=== PATIENT | female | born 1990 | race Caucasian/White ===

== ENCOUNTER 2021-12-14 01:15 | Inpatient (IN) | payer OTHER, SELFPAY ==
[2021-12-14] VITALS (21 sets, daily range): BP systolic 101–150; BP diastolic 57–81; PULSE 75–100; RESP 16–18; TEMP 36.3–37.7; O2SAT 98–99; BMI 43.9
[2021-12-14] MEDS: 0.9% Saline Lock 10 ML Syringe IV ×2 (01:35→05:50)
[2021-12-14 01:57] LABS: Absolute Lymphocyte Count 1.97 X10^3/uL (0.83-4.51); Absolute Neutrophil Count 5.7 X10^3/uL (2.0-7.7); Basophil# 0.02 X10^3/uL; Basophil% 0.2 % (0-1); Eosinophils% 1.2 % (0-5); Hematocrit 33.2 % (37-47); Hemoglobin 10.6 g/dL (12.0-15.0); Lymphocyte # 1.97 X10^3/ul (0.83-4.51); Lymphocyte % 23.7 % (19-41); Mean Corp Hgb Conc 31.9 g/dL (32-36); Mean Corpuscular Hgb 30.9 pg (27.0-32.0); Mean Corpuscular Volume 96.8 fL (81-99); Mean Platelet Vol. 10.1 fl (6.2-12.0); NRBC Flagged by Analyzer 0 % (0-5); Neutrophil # 5.69 X10^3/uL (2.7-7.7); Neutrophil % 68.4 % (47-70); Platelet Count 210 K/mm3 (150-450); RBC Distribution Width CV 14.7 % (11.6-14.6); Red Blood Count 3.43 M/mm3 (4.2-5.4); White Blood Count 8.3 K/mm3 (4.4-11.0)
[2021-12-14] MEDS: Lactated Ringers 1,000 ML 50 ML IV (02:38)
[2021-12-14] MEDS: Oxytocin 30 units/NS 500 ml 30 UNITS/500 ML IV.SOLN IV (02:45)
--- NOTE | 2021-12-14 03:14 | HP.PCM.OB_ITS ---
HPI - General General Date of Admission: 12/14/21 Date of Service: 12/14/21 Chief Complaint: heart rate decelerations at [facility], so brought in by Ld Teacher. (Rhianna) HPI Narrative AGUSTIN CEDILLO, is a 31 F who presents as above . She is a EGA 41+3 weeks and yesterday her midwive attempted to induce labor using [place] oil x 1, herbs and breast stimulation by pump. The herbs are piedad, black & blue cohosh and 4th t ype (?). There has been no bleeding, LOF, and movements have persisted. Maternal Data Information Final CARLOS: 01/05/22 Gestational age: 41.4 PFSH COUNT INCLUDES THE [facility] Medical History (Updated 12/14/21 @ 03:[address] Kaitlynn Haskins MD) Family history of hearing loss at age younger than 7 years Headache hemorrhage Vacuum-assisted vaginal delivery Allergy/AdvReac Type Severity Reaction Status Date / Time No Known Allergies Allergy Verified 12/14/21 00:54 other (family history of twins and Down's syndrome - maternal) no surgical history Social History Smoking Status: Never smoker History 7 Elective abortions 0 Hx Para 6 Spontaneous abortions 0 Hx # Term Pregnancies 6 Ectopic pregnancies 0 Hx # Pregnancies 0 Multiple births 0 # of living children 6 Addt'l History: PNC with resident care manager rn, was planning center delivery. Records show 25lb weight gain in an obese female. Documents show EFW 38wks- 3300gm, ceph pres. NST FHR Rate Baby A Baseline: 135 Variability:: Moderate Accelerations:: 15 x 15 Decelerations:: None NST Reactive:: Appropriate for gestational age FHR Category:: Category I Uterine Activity:: contractions q 2- 5 minutes Vital Signs Vital Signs Vital Signs: 12/14/21 01:00 12/14/21 01:00 12/14/21 01:01 Temperature Temperature Source Pulse Rate 91 Blood Pressure 101/59 L BP Systolic 101 BP Diastolic 59 Pulse Ox 99 12/14/21 01:01 12/14/21 00:57 12/14/21 00:57 Temperature 98.4 F Temperature Source Temporal Pulse Rate 91 Blood Pressure BP Systolic BP Diastolic Pulse Ox 12/14/21 02:21 12/14/21 02:22 12/14/21 02:22 Temperature Temperature Source Temporal Pulse Rate 85 Blood Pressure BP Systolic BP Diastolic Pulse Ox 98 12/14/21 02:21 10 02:22 12/14/21 02:22 Temperature 97.8 F Temperature Source Pulse Rate 90 Blood Pressure 108/60 BP Systolic 108 BP Diastolic 60 Pulse Ox Weight Weight: 240 lb 6.4 oz Body Mass Index (BMI) 43.9 Physical Exam Const alert, oriented x3 and no apparent distress General Appearance: cooperative Exam Limitations: no limitations Nutritional Appearance: obese HEENT normocephalic Eyes PERRL Lymph Lymphatic: no lymphadenopathy noted Resp normal respiratory effort and clear to auscultation bilaterally Cardio regular rate and regular rhythm GI soft to palpation and non-tender GI Narrative: Gravid abdomen. no CVA tenderness Narrative: per RN 3-4cm//-2 station Uterus Palpation: other OB average 7-7.5lb fetus Extremity no calf tenderness and no pedal edema Extremity Narrative: some scabs- erythematous. Skin General Skin Exam: no breakdown Neuro oriented x3 Psych mental status grossly normal and cooperative Labs Labs Labs: Blood Type Pending Antibody Screen Pending Hct 33.2 % (37-47) L Hgb 10.6 g/dL (12.0-15.0) L Syphilis Total Ab Pending Rubella IgG Antibody Pending Hep Bs Antigen Pending HIV 1&2 Antibody Pending Group B Strep DNA Pending Assessment & Plan (1) 41 weeks gestation of : (2) Mild anemia: (3) Grand multipara in labor: (4) Insufficient care: (5) Obesity (BMI 35.0-39.9 without comorbidity): PLAN: Plan Labor monitoring with augmentation as needed, anticipate
--- NOTE | 2021-12-14 03:33 | HP.PCM.OB_ITS ---
HPI - General General Date of Admission: 12/14/21 Chief Complaint: heart rate decelerations at [facility], so brought in by Three Dimensional Art Instructor. (Rhianna) HPI Narrative AGUSTIN CEDILLO, is a 31 F who presents [facility] Medical History (Updated 12/14/21 @ 03:[address] Kaitlynn Haskins MD) Family history of hearing loss at age younger than 7 years Headache hemorrhage Vacuum-assisted vaginal delivery Allergy/AdvReac Type Severity Reaction Status Date / Time No Known Allergies Allergy Verified 12/14/21 00:54 Family History other Surgical History no surgical history Social History Smoking Status: Never smoker History 7 Elective abortions 0 Hx Para 6 Spontaneous abortions 0 Hx # Term Pregnancies 6 Ectopic pregnancies 0 Hx # Pregnancies 0 Multiple births 0 # of living children 6 Vital Signs Vital Signs Vital Signs: 12/14/21 01:00 12/14/21 01:00 12/14/21 01:01 Temperature Temperature Source Pulse Rate 91 Blood Pressure 101/59 L BP Systolic 101 BP Diastolic 59 Pulse Ox 99 12/14/21 01:01 12/14/21 00:57 12/14/21 00:57 Temperature 98.4 F Temperature Source Temporal Pulse Rate 91 Blood Pressure BP Systolic BP Diastolic Pulse Ox 12/14/21 02:21 12/14/21 02:22 12/14/21 02:22 Temperature Temperature Source Temporal Pulse Rate 85 Blood Pressure BP Systolic BP Diastolic Pulse Ox 98 12/14/21 02:21 12/14/21 02:22 12/14/21 02:22 Temperature 97.8 F Temperature Source Pulse Rate 90 Blood Pressure 108/60 BP Systolic 108 BP Diastolic 60 Pulse Ox 12/14/21 03:17 12/14/21 03:17 12/14/21 03:17 Temperature 99.4 F H Temperature Source Temporal Pulse Rate Blood Pressure 103/57 L BP Systolic 103 BP Diastolic 57 Pulse Ox 12/14/21 03:18 12/14/21 03:18 Temperature Temperature Source Pulse Rate 79 Blood Pressure BP Systolic BP Diastolic Pulse Ox 98 Weight Weight: 240 lb 6.4 oz Body Mass Index (BMI) 43.9 Labs Labs Labs: Blood Type Pending Antibody Screen Pending Hct 33.2 % (37-47) L Hgb 10.6 g/dL (12.0-15.0) L Syphilis Total Ab Pending Rubella IgG Antibody Pending Hep Bs Antigen Pending HIV 1&2 Antibody Pending Group B Strep DNA Pending
--- NOTE | 2021-12-14 03:35 | PCM.PN.BLA ---
Progress Note Patient currently very comfortable when seen about 0300. Pitocin running at 1 miu/minute with ctxs q 1.5 - 3 minutes and patient tolerating them well. No pelvic exam done. 0415 - patient states ctxs q 2-3' are 6/ ie a little stronger than when she came in - 06/20. VE done : 4-5cm/stretchy/70%/-3 and during exam SROM happened for moderate meconium stained fluid. Slowly withdrawn examining hand. FHR 140's with moderate varibility.
[2021-12-14 04:07] LABS: HIV - WCH Preliminary Reactive (Nonreactive); Hepatitis B Surface Antigen Non-Reactive (Nonreactive); Hepatitis C Antibody Non-Reactive (Nonreactive)
[2021-12-14 05:06] LABS: Mucous, Urine 0 SEEN /hpf (<or=2+)
[2021-12-14 05:08] LABS: Color, Urine Yellow (Yellow); Glucose, Dipstick Normal (Normal); Ketone-Dipstick Negative (Negative); Leukocyte Esterase-Dipstick 500 /ul (Negative); Nitrite-Dipstick Negative (Negative); Occult Blood-Urine 250 /ul (Negative); Protein-Dipstick 30 mg/dl (Negative); Urine Bilirubin Dipstick Negative (Negative); Urine Clarity Sl. Cloudy (Clear); Urine Urobilinogen Normal (Normal)
[2021-12-14 05:17] LABS: Group B Strep DNA By PCR Negative (Negative); Internal Control PASS; Probe Check PASS; Specimen Processing Control PASS
[2021-12-14 05:19] LABS: Amphetamine Urine VISTA NEGATIVE (<1000 ng/mL); Barbiturate Urine VISTA NEGATIVE (< 200 ng/mL); Benzodiazepine Urine VISTA NEGATIVE (< 200 ng/mL); Cocaine Urine VISTA NEGATIVE (< 300 ng/mL); Ecstacy Urine VISTA NEGATIVE (< 500 ng/mL); Methadone Urine VISTA NEGATIVE (< 300 ng/mL); PCP Urine VISTA NEGATIVE (< 25 ng/mL); THC Urine VISTA NEGATIVE (< 50 ng/mL); Vista UDS pH Range 7
[2021-12-14 05:28] LABS: Amorphous Sediment 1+; Bacteria 2+ /hpf (None Seen); Red Blood Cells-Urine 25-50 SEEN /hpf (0-5); Squamous Epithelial Cells - UA 5-10 SEEN /hpf (5-10); White Blood Cells 25-50 SEEN /hpf (0-5)
[2021-12-14] MEDS: Oxytocin 10 UNITS/ML Vial IM (05:42)
[2021-12-14] MEDS: Oxytocin 30 units/NS 500 ml 30 UNITS/500 ML IV.SOLN 999 UNITS IV (05:54)
--- NOTE | 2021-12-14 06:03 | PCM.NY.DEL ---
Delivery Attendance Service Date: 12/14/21 Physical Exam Apgars/Vital Signs/Weight: Weight: 240 lb 6.4 oz General Weight: 240 lb 6.4 oz Delivery Course Patient progressed rapidly to complete after she was 8 cm, and had started to push involuntarily. Anterior lip of cervix finally held up to allow her to push -> Complete, followed by very short second stage. Loose nuchal cord x 1 reduced. Mouth and nose suctioned well on perineum, then rest of infant delivered after very mild shoulder dystocia. Initially no respiratory effort, but responded to stimulation. Fluid was meconium stained with additional terminal meconium. Vernix++. Delivered in direct OA position. Pediatrics present for delivery and infant was handed over pretty promptly after cutting cord long. Infant returned to skin to skin shortly after. Apgars 8& 9. IM Pitocin x 10 units given because IV had extruded, and 3rd stage managed actively for complete placenta with 3 vessel cord. EBL 100ml. IV access obtained and will give IV Pitocin. Uterus firm at umb -2. Patient tolerated delivery really well. 1st degree perineal tear repaired with #3-0 Vicryl after infiltration with 3ml of 1% lidocaine, plain.
[2021-12-14] MEDS: Ibuprofen 600 MG Tablet PO ×2 (06:45→13:45)
--- NOTE | 2021-12-14 06:45 | NURSING ---
ibuprofen verified with Marta randolph RN, medication scanned but was not able to be saved
[2021-12-14 06:46] LABS: Chlamydia Trachomatis by PCR Negative (Negative); Neisserai gonorrhoeae by PCR Negative (Negative); Probe Check PASS; Sample Adequacy Control PASS; Specimen Processing Control PASS
[2021-12-14] MEDS: Methylergonovine 0.2 MG/ML Ampul IM (06:58)
--- NOTE | 2021-12-14 07:20 | NURSING ---
report given to Femi Santos RN who is assuming care of pt at this time
--- NOTE | 2021-12-14 07:43 | NURSING ---
pt refusing further IV pitocin, pitocin discontinued at 0633 per pt request
[2021-12-14 08:06] LABS: Rubella IgG Reactive (Nonreactive); Syphilis Antibodies Non-reactive
[2021-12-14] MEDS: Acetaminophen 500 MG Tablet PO ×2 (09:31→17:36)
--- NOTE | 2021-12-14 09:49 | PCM.PN.BLA ---
Progress Note I was made aware while patient was laboring of initial HIV screen for this patient which was positive. Spoken to patient and she is at very low risk for HIV including never having been transfused. Patient was allowed to labor and deliver vaginally. Post , same was discussed with Cinder Pit Crane Operator present at delivery. They will manage baby. Patient discussed with Infectious disease specialist Dr. Vinh Duarte and he recommends not to treat the mother, but to order a FOURTH generation serologic HIV test, and await results to consider treatment. Meantime, patient is not to breast feed. Patient is asymptomatic. Will order CMP to document chemistries, in case Rx is needed. Above discussed with RILEY Sanabria, who will look into ordering above test. Will see patient this pm and discuss current care plan.
--- NOTE | 2021-12-14 10:10 | NURSING ---
0820: Robina aware of phone conversation with and plan. Robina communicating this with pt and . 1005: Robina aware that message was left on voicemail to that [facility] does not have 4th generation test and that consulted with [place]'s retail seasonal specialist and that they rec. no medications to be given at this time. Robina stating she will update pt and family.
[2021-12-14 15:12] LABS: ALB/GLOB Ratio 0.7 RATIO (0.9-2.4); AST(SGOT) 18 U/L (15-37); Alanine Aminotransfer ALT/SGPT 19 U/L (13-56); Albumin, Serum 2.5 g/dL (3.2-5.0); Alkaline Phosphatase 139 U/L (45-117); Anion Gap 10 (5-15); BUN 10 mg/dL (7-18); BUN/Creat Ratio 14.1 RATIO (10-20); Calcium,Total 8.8 mg/dL (8.5-10.1); Chloride 109 mmol/L (98-107); Creatinine, Serum 0.71 mg/dL (0.55-1.02); EST Glomerular Filtration Rate 101 mL/min (>60); Est Glom Filt Rate - Afr Amer 123 mL/min (>60); Estimated Creatinine Clearance 89.97 ml/min; Globulin 3.8 g/dL (2.2-4.2); Glucose 99 mg/dL (74-106); Potassium 4.3 mmol/L (3.5-5.1); Protein, Total 6.3 g/dL (6.4-8.2); Sodium Level 140 mmol/L (136-145)
[2021-12-15 00:25] VITALS: BP 101/61; PULSE 78; RESP 18; TEMP 36.6; O2SAT 98
[2021-12-15 05:41] VITALS: BP 104/64; PULSE 74; RESP 16; TEMP 36.5; O2SAT 97
[2021-12-15] MEDS: Ibuprofen 600 MG Tablet PO ×2 (05:50→20:09)
[2021-12-15 08:00] VITALS: BP 106/68; PULSE 91; RESP 14; TEMP 36.4
[2021-12-15 13:46] VITALS: BP 110/72; PULSE 110; RESP 14; TEMP 36.4
--- NOTE | 2021-12-15 17:25 | PN_ITS ---
Subjective Subjective Good pain control. Minimal lochia. Baby feeding well per bottle. Objective Data Objective Data Looks very well and cheerful Vital Signs: Vital Signs Temp Pulse Resp BP Pulse Ox O2 Del Method 97.6 F L 110 H 14 110/72 97 Room Air 12/15/21 13:46 12/15/21 13:46 12/15/21 13:46 12/15/21 13:46 12/15/21 05:41 12/15/21 13:46 Oxygen Delivery Method Room Air Weight: 240 lb 6.4 oz Body Mass Index (BMI) 43.9 Intake & Output: Intake and Output for Last 24 Hours 12/13/21 12/14/21 12/15/21 23:59 23:59 23:59 Intake Total 613.69 / 613.69 Balance 613.69 / 613.69 Lab / Micro Data Attestation: I reviewed the patient's lab results. Result Diagrams: 12/14/21 01:45 12/14/21 01:45 Labs: Laboratory Results - last 24 hr 12/14/21 01:45: Sodium 140, Potassium 4.3, Chloride 109 H, Carbon Dioxide 21.0, Anion Gap 10, BUN 10, Creatinine 0.71, Estim Creat Clear Calc 89.97, Est GFR (MDRD) Af Amer 123, Est GFR (MDRD) Non-Af 101, BUN/Creatinine Ratio 14.1, Glucose 99, Calcium 8.8, Total Bilirubin 0.40, AST 18, ALT 19, Alkaline Phosphatase 139 H, Total Protein 6.3 L, Albumin 2.5 L, Globulin 3.8, Albumin/Globulin Ratio 0.7 L Physical Exam Narrative Uterus palpable - firm at u-3 Const alert, oriented x3 and no apparent distress General Appearance: cooperative HEENT normocephalic GI soft to palpation and non-tender Extremity no calf tenderness Extremity Narrative: 1+ edema General Extremity: edema bilateral Skin General Skin Exam: no breakdown Psych thought process normal and affect normal Assessment & Plan Assessment/Plan (1) state: (2) Obesity (BMI 35.0-39.9 without comorbidity): (3) Insufficient care: (4) Mild anemia: PLAN: Plan Home tomorrow on Ibuprofen, after baby has completed 48 hr observation. Plan to notify mother ANTONI once confirmatory HIV results available. Will not hold discha rge till results in.
--- NOTE | 2021-12-15 17:31 | DS.PCM_ITS ---
Providers Date of Admission: 12/14/21 Date of Discharge: 12/16/21 Primary Care Physician: No Primary Care Phys Reason For Visit: VAGINAL DELIVERY Diagnosis Discharge Diagnosis (1) state: Status: Acute Code(s): Z39.2 - Encounter for routine follow-up (2) Obesity (BMI 35.0-39.9 without comorbidity): Status: Acute Code(s): E66.9 - Obesity, unspecified (3) Insufficient care: Status: Acute Code(s): O09.30 - Supervision of with insufficient care, unspecified trimester (4) Mild anemia: Status: Acute Code(s): D64.9 - Anemia, unspecified Plan Home tomorrow on Ibuprofen, after baby has completed 48 hr observation. Plan to notify mother ANTONI once confirmatory HIV results available. Will not hold dis charge till results in. Hospital Course Summary of Care Provided Minutes Spent on Discharge: 15 Hospital Course: Patient admitted in latent phase labor with category II heart tracing. Recieved Pitocin without significant deterioraion in heart rate, till female with Apgars of 8 & 9. Light meconium stained fluid. 1st degree tear repaired. recovery uneventful. Baby required 48 hour observation due to lack of GBBS status (rapid negative) and +ve preliminary HIV screen on mother. Confirmatory tests pending. Weight / BMI Weight Weight: 240 lb 6.4 oz Body Mass Index (BMI) 43.9 ABG / Lab / Microbiology Data Result Diagrams: 12/14/21 01:45 12/14/21 01:45 Laboratory: Laboratory Results - last 24 hr 12/14/21 01:45: Sodium 140, Potassium 4.3, Chloride 109 H, Carbon Dioxide 21.0, Anion Gap 10, BUN 10, Creatinine 0.71, Estim Creat Clear Calc 89.97, Est GFR (MDRD) Af Amer 123, Est GFR (MDRD) Non-Af 101, BUN/Creatinine Ratio 14.1, Glucose 99, Calcium 8.8, Total Bilirubin 0.40, AST 18, ALT 19, Alkaline Phosphatase 139 H, Total Protein 6.3 L, Albumin 2.5 L, Globulin 3.8, Albumin/Globulin Ratio 0.7 L D/C Instructions Discharge Diet: No restrictions Discharge Activity: May Shower Return to work on: 01/26/22 May resume sexual activity in: 6 weeks Lifting Restricted to (Lbs): 10 Call your doctor if you observe: Fever of 101 or Higher and Using more than 1 pad per hour Additional Instructions: We will call when results are available to notify you IF you may breastfeed. Please Follow Up With: Kaitlynn Haskins MD When: 6 weeks Meaningful Use Info Meaningful Use Diagnoses (Choose all that apply): None applicable Discharge Plan Admission Admit Date/Time: 12/14/21 01:15 Attending Provider: Kaitlynn Haskins Primary Care Provider: Care Physician,Sanjana Primary Discharge Orders/Prescriptions Referrals / Follow Up: Care Physician,No Primary [Primary Care Provider] - Disposition Disposition (needs filled in before D/C Order can be placed): Home, Self Care
[2021-12-15 20:19] VITALS: BP 119/71; PULSE 79; RESP 16; TEMP 36.6; O2SAT 98
[2021-12-15] MEDS: Acetaminophen 500 MG Tablet PO (21:51)
[2021-12-16 01:54] VITALS: BP 98/52; PULSE 76; RESP 16; TEMP 36.6
--- NOTE | 2021-12-16 03:00 | NURSING ---
Report received from Anurag LIN. This RN to assume care of patient and infant at this time.
[2021-12-16] MEDS: Ibuprofen 600 MG Tablet PO ×2 (04:59→14:25)
[2021-12-16 08:40] VITALS: BP 128/71; PULSE 90; RESP 16; TEMP 36.6; O2SAT 100
[2021-12-16 08:50] VITALS: BP 128/71; PULSE 90; RESP 16; TEMP 36.6; O2SAT 100
--- NOTE | 2021-12-16 11:57 | CASEMGMT ---
Social Work Assessment Labor and Delivery Unit Patient Address: [address], [place] [address] Phone number: [phone] Date of Referral: 12.16.2021 Time of Referral: 829 Referred By: Social Work Identification Date of Intervention: 12.16.2021 Time of Intervention: 1000 Reason for Referral: Emotional support, coping; maternal presumptive positive HIV results at admission History obtained from: Medical records and mother of baby (MOB) Divine Hernandez; father of baby (FOB) Bryan Hernandez present for part of conversation. Household composition: MOB, FOB, and children. No reported concerns with housing. Patient's parent/guardian status: ANGELIKA is a 31 year old female, to the [facility] for the last 10 years. MOB and FOB are part of the [facility]. During private conversation, MOB denies any form of abuse or intimate partner violence. MOB and FOB now have 7 children together: Tawny (8), Lauren (7), Saavedra (5), Heather (4), Luigi (3), Courtney (1), and baby girl Divine (12.14.2021). Medical History: ANGELIKA is G7, P6 to 7 after delivering Baby matty Haskins. 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 Infant weighed 4090 grams at . Apgars 8 and 9 at 1 and 5 minutes of life respectively. MOB reports first 5 deliveries at [facility] and one at the [facility]. Educational Status: 8th grade, as is the norm in the [employer]. MOB reports can read, but some words can be tricky for MOB. Financial Status: SHERLYN works for [employer] in [place], [place]. Supplies: Reports to have necessary supplies including a crib and car seat. Childcare/Caregiver(s): MOB is primary caregiver, with FOB helping in the evenings and weekends. 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 Programs/Agencies Involved: No agency involvement. Children Services/Legal Issues: None reported. Behavioral Health Issues: Mental Health History: MOB reports has had periods of time when feeling overwhelmed, cries, and irritable mostly occurring right after and when MOB has many children wanting something at the same time. MOB denies any thoughts or history of suicidal ideation, intent, or attempts. Denies any history of psychosis symptoms (which this food writer described to MOB). MOB reports it helps to talk to others, talk to FOB, and visit with people when feeling overwhelmed. MOB reports to like to be with others. Substance Use History: Denies any history. Denies any needle usage. Family History: MOB is not aware of mental health history in own family. FOB has depression and is on medications for such. MOB and FOB reportedly did some counseling together summer at [facility]. MOB reports counseling was helpful. Drug Screens: Maternal and drug screens are negative. Meconium is pending. Family/Social Stressors: Unexpected hospital delivery, about 2 hours away from home, and extended stay waiting on lab results/confirmation for HIV. Closely spaced pregnancies. Support Systems: FOB, family, and will have a helper upon home going (as is the norm in the [facility] Culture) for several weeks. Reports to have a helper at home now with the children. Depression/Shaken Baby/Safe Sleeping: Reviewed safe sleeping, shaken baby prevention, and depression and anxiety. ASSESSMENT: Met with MOB and FOB in room, introducing to self and social work role. MOB and FOB both participating in conversation. FOB more talkative than MOB, however MOB did participate and answered questions. Observed FOB to make jokes at times, and MOB to laugh. Good eye contact for both. MOB's affect constricted. Teary eyed a few times in conversation, appropriate to content being discussed, but never fully cried. Attempted to explore how MOB and FOB are doing during hospital stay, and MOB's and FOB's understanding as to why hospitalization continues. MOB and FOB report understanding of HIV results pending, with MOB reporting that doesn't understand HIV too much, and FOB expressing that understands this to be a virus that can get real mean if not treated. Offered opportunity to ask questions, answered questions as able, offered support. MOB admits has been a worry waiting on results. During private conversation with the MOB, MOB answered [place] depression scale and also denied any type of abuse with the FOB. MOB more talkative and asking more questions about HIV (such as who will need to get tested). MOB expressed that read up in the literature given that peopled can get buttons on their skin when HIV is present. MOB stated some of my children get the buttons, which come and go, mostly when there are earaches and infections. MOB able to appropriate express understanding as to how HIV is contracted. Denies any knowledge of infidelity during the marriage or any needle use. MOB also able to express understanding that will not know definitively until confirmation comes back. Allowed MOB time to ask questions, offered much emotional support, encouragement, validation. MOB expressed thanks for visit, and admits it is nice to talk to others and break up the day. Provided MOB with information on mood and anxiety disorders. Note, did broach the topic of Medicaid should medications be needed in the future. PLAN: Social work to follow and assist as indicated during hospital stay. -TIM Reyna, CATHY *This note was generated with [employer] software. It may contain incorrect words, spelling, and punctuation that were not noted in review of the chart prior to signing*
[2021-12-16 13:35] VITALS: BP 123/80; PULSE 89; RESP 14; TEMP 36.4; O2SAT 97
[2021-12-16 20:43] VITALS: BP 129/61; PULSE 88; RESP 17; TEMP 36.1
[2021-12-17 02:50] VITALS: BP 103/44; PULSE 72; RESP 14; TEMP 36.5; O2SAT 96
[2021-12-17 08:58] LABS: Hepatitis B Surface Antibody Non-Reactive
[2021-12-17 09:33] VITALS: BP 118/72; PULSE 103; RESP 14; TEMP 36.3
[2021-12-17] MEDS: Ibuprofen 600 MG Tablet PO (10:01)
--- NOTE | 2021-12-17 10:04 | PCM.CONS.GEN ---
Assessment & Plan Assessment/Plan (1) HIV antibody positive: PLAN: Initial HIV Ab (+). Western blot pending. Ordered viral load, CD4 genotype. Pt without risk factors for hiv infection. No prior HIV testing at [facility], [facility], or [place]. Baby started on 3 drug therapy and her hiv test is also pending. At this point, agree with ART for baby, avoiding breast feeding, avoiding sexual activity while the western blot and viral load are pending. Western blot should come back later today, viral load will take 2-5 days. Hep C, syphilis, and gc/chlamydia neg. Will follow, thank you, d/w Dr. Haskins and OB team. (2) state: HPI Consult Data Date of Consult: 12/17/21 HPI Narrative Reason for Consultation: hiv initial (+) HPI Narrative: AGUSTIN CEDILLO, is a 31 F who presented for delivery on 12/14. First 5 pregnancies had care at [facility]. She does not know if she has had prior hiv testing. No fever, no night sweats, feeling ok. She and deny any other sexual partners, no h/o STI, no IVDU, no blood transfusions as a child. Baby seen by peds, started on 3 drug ART. Full ROS and neg except as noted above. [facility] Medical History Family history of hearing loss at age younger than 7 years Headache hemorrhage Vacuum-assisted vaginal delivery Home Medications acetaminophen 500 mg tablet 500 - 1,000 mg PO Q6H PRN 5 days #0 tabs 12/15/21 [Rx Last Taken Unknown] ibuprofen 600 mg tablet 600 mg PO Q6H PRN PRN Pain Score 1-3 5 days #20 tabs 12/15/21 [Rx Last Taken Unknown] Allergy/AdvReac Type Severity Reaction Status Date / Time No Known Allergies Allergy Verified 12/14/21 00:54 Family History other Surgical History no surgical history Social History Smoking Status: Never smoker Physical Exam Const alert, oriented x3 and no apparent distress General Appearance: cooperative HEENT normocephalic and head/scalp atraumatic Eyes PERRL and EOMs intact bilaterally Neck supple and No nodes Resp normal air movement and clear to auscultation bilaterally Cardio regular rate and regular rhythm GI soft to palpation, non-tender and non-distended Extremity General Extremity: edema Skin no rashes or lesions noted Neuro CN's II-XII intact bilaterally Lab / Micro Data Attestation: I reviewed the patient's lab results. Result Diagrams: 12/14/21 01:45 12/14/21 01:45 Labs: Laboratory Results - last 24 hr 12/17/21 05:40: Hep Bs Antibody Non-Reactive Micro: Microbiology 12/14/21 Unknown Genital vaginal Group B Streptococcus Culture - Final Group B Beta Streptococcus is not isolated.
[2021-12-20 14:35] LABS: HIV-1 RNA by PCR, Quant. < 20 copies/mL (.)
[2021-12-21 22:07] LABS: Absolute CD4 Helper 802 /uL (359-1519); Basophils (Absolute) 0 x10E3/uL (0.0-0.2); Eosinophils 3 % (Not Estab.); Eosinophils (Absolute) 0.2 x10E3/uL (0.0-0.4); Hematocrit 26.8 % (34.0-46.6); Hemoglobin 8.8 g/dL (11.1-15.9); Immature Granulocytes 1 % (Not Estab.); Immature Granulocytes Absolute 0.1 x10E3/uL (0.0-0.1); Lymphs 31 % (Not Estab.); Lymphs (Absolute) 1.7 x10E3/uL (0.7-3.1); MCH 31.4 pg (26.6-33.0); MCHC 32.8 g/dL (31.5-35.7); MCV 96 fL (79-97); Monocytes 6 % (Not Estab.); Monocytes (Absolute) 0.3 x10E3/uL (0.1-0.9); Neutrophils 58 % (Not Estab.); Neutrophils (Absolute) 3.2 x10E3/uL (1.4-7.0); Percent % CD4 Pos. Lymph. 47.2 % (30.8-58.5); Platelets 218 x10E3/uL (150-450); QNTFERON TB Mitogen Value > 10.00 IU/mL (.); QNTFERON TB Nil Value 0.06 IU/mL (.); QNTFERON TB1+ Ag Value 0.15 IU/mL (.); QNTFERON TB2+ Ag Value 0.12 IU/mL (.); RDW 14.1 % (11.7-15.4); WBC Count 5.5 x10E3/uL (3.4-10.8)
[2021-12-22 08:38] LABS: QNTIFERON TB Positive Criteria Negative (Negative)
== END 2021-12-17 12:10 | disposition home or self-care (01) | DRG 806 ==
LOC: WPOUT 01:19 → WP 01:19
PROVIDERS: Internal Medicine Infectious Disease; Admitting Provider Obstetrics & Gynecology Gynecology; Visit Provider Obstetrics & Gynecology Gynecology
DX: O48.0 Post-term pregnancy (principal); Z37.0 Single live birth; O98.72 Human immunodeficiency virus [HIV] disease complicating childbirth; E66.9 Obesity, unspecified; Z21 Asymptomatic human immunodeficiency virus [HIV] infection status; O99.214 Obesity complicating childbirth; O70.0 First degree perineal laceration during delivery; O69.81X0 Labor and delivery complicated by cord around neck, without compression, not applicable or unspecified; O77.0 Labor and delivery complicated by meconium in amniotic fluid; Z3A.41 41 weeks gestation of pregnancy; O66.0 Obstructed labor due to shoulder dystocia
CPT/HCPCS: 36415; 59025; 59050; 80053; 80307; 81001; 85025; 85461; 86361; 86480; 86703; 86706; 86762; 86780; 86803; 86850; 86900; 86901; 87081; 87340; 87491; 87536; 87591; 87653; 90384; 99218; J7120; A4216; G0378; J2790